=== PATIENT | female | born 2000 | race American Indian/Alaskan Native ===

== ENCOUNTER 2020-10-22 08:33 | Inpatient (IN) | payer MEDICAID ==
[2020-10-22] MEDS ORDERED: OXYTOCIN DRIP 30 UNITS/500 ML BAG IV SCH (10:00)
[2020-10-22] MEDS ORDERED: LIDOCAINE (2%) 20 MG/1 ML VIAL 20 ML MDV INFILTRATI SCH (10:00)
[2020-10-22] MEDS ORDERED: ONDANSETRON 4 MG/2 ML INJ IV PRN (10:30)
[2020-10-22] MEDS ORDERED: PROMETHAZINE 25 MG TAB PO PRN (10:30)
[2020-10-22] MEDS ORDERED: ePHEDrine SULFATE 50 MG/1 ML INJ IV PRN (10:30)
[2020-10-22] MEDS ORDERED: BUTORPHANOL 2 MG/1 ML INJ IV PRN ×2 (10:30)
[2020-10-22] MEDS ORDERED: TERBUTALINE 1 MG/1 ML INJ SUB-Q PRN (10:30)
[2020-10-22] MEDS ORDERED: NALOXONE 0.4 MG/1 ML INJ IV PRN (10:30)
[2020-10-22] MEDS ORDERED: MINERAL OIL 30 ML ORAL LIQD PO PRN (10:30)
[2020-10-22 10:40] LABS: Hematocrit 33.3 % (30.3-42.9); Hemoglobin 11.4 gm/dl (10.1-14.3); Mean Corpuscular HGB Conc 34 % (30-34); Mean Corpuscular Volume 88 fl (79-97); Platelet Count 166 K/mm3 (140-440); Red Cell Distribution Width 13.7 % (13.2-15.2)
[2020-10-22] MEDS: miSOPROStol 25 MCG TAB VG PRN ×3 (12:06→23:26)
--- NOTE | 2020-10-22 13:16 | History and Physical Report ---
History of Present Illness Date of examination: 10/22/20 Date of admission: 10/22/20 08:33 Chief complaint: Here for induction of labor History of present illness: Pt is a 20 yo at 38w1d EGA who presents for induction of labor secondary to growth restriction. She reports positive movement and denies LOF, contractions, or vaginal bleeding. She has received care with [facility], co-managed with [facility]. Her course has been complicated by growth restriction. She is GBS negative. Past History Past Medical History: asthma Past Surgical History: no surgical history Social history: no significant social history - Obstetrical History Expected Date of Delivery: 11/04/20 Actual Gestation: 38 Week(s) 1 Day(s) : 1 Para: 0 Hx # Term Pregnancies: 0 Number of Pregnancies: 0 Spontaneous Abortions: 0 Induced : 0 Number of Living Children: 0 Medications and Allergies Allergies Allergy/AdvReac Type Severity Reaction Status Date / Time No Known Allergies Allergy Unverified 10/22/20 09:54 Active Meds: Active Medications Butorphanol Tartrate (Butorphanol 2 Mg/1 Ml Inj) 1 mg IV Q2H PRN PRN Reason: Pain, Moderate(4-6) LABOR PAIN Butorphanol Tartrate (Butorphanol 2 Mg/1 Ml Inj) 2 mg IV Q2H PRN PRN Reason: Pain , Severe (7-10) Ephedrine Sulfate (Ephedrine Sulfate 50 Mg/1 Ml Inj) 10 mg IV Q2M PRN PRN Reason: Hypotension Fentanyl (Fentanyl 100 Mcg/2 Ml Inj) 100 mcg IV Q2H PRN PRN Reason: Pain,Severe (7-10) LABOR PAIN Lactated Ringer's (Lactated Ringers) 1,000 mls @ 125 mls/hr IV DIRECT BROOKE Oxytocin/Sodium Chloride (Pitocin/Ns 30 Unit/500ml) 30 units in 500 mls @ 40 mls/hr IV TITR BROOKE; Protocol Lidocaine (Lidocaine (2%) 20 Mg/1 Ml Vial 20 Ml Mdv) 20 ml INFILTRATI ONCE BROOKE Stop: 10/23/20 09:59 Mineral Oil (Mineral Oil 30 Ml Oral Liqd) 30 ml PO QHS PRN PRN Reason: Constipation Misoprostol (Misoprostol 25 Mcg Tab) 25 mcg VG Q4H PRN PRN Reason: labor Last Admin: 10/22/20 12:06 Dose: 25 mcg Documented by: Naloxone HCl (Naloxone 0.4 Mg/1 Ml Inj) 0.1 mg IV Q2MIN PRN PRN Reason: Res Rate </= 8 or 02 SAT < 92% Ondansetron HCl (Ondansetron 4 Mg/2 Ml Inj) 4 mg IV Q8H PRN PRN Reason: Nausea And Vomiting Promethazine HCl (Promethazine 25 Mg Tab) 25 mg PO Q6H PRN PRN Reason: Nausea And Vomiting Terbutaline Sulfate (Terbutaline 1 Mg/1 Ml Inj) 0.25 mg SUB-Q ONCE PRN PRN Reason: Hyperstimulation/Hypertonicity Review of Systems All systems: negative Genitourinary: vaginal bleeding (spotting after SVE), no leakage of fluid, no genital sores, no contractions - Vital Signs Vital signs: Vital Signs Pulse BP Pulse Ox 92 H 117/68 99 10/22/20 09:57 10/22/20 09:57 10/22/20 09:57 Temp Pulse Resp BP Pulse Ox 97.8 F 104 H 18 117/68 99 10/22/20 10:13 10/22/20 10:42 10/22/20 10:13 10/22/20 10:13 10/22/20 10:42 - Physical Exam Abdomen: Positive: soft Uterus: Positive: enlarged (gravid) Extremities: Positive: normal - Obstetrical FHR: category 1 Uterine Contraction Monitor Mode: External Cervical Dilatation: 3 (per RN) Cervical Effacement Percentage: 50 station: -2 Uterine Contraction Frequency (min): 5 Uterine Contraction Pattern: Regular Uterine Tone Measurement Phase: Contraction Uterine Contraction Intensity: Mild Results Result Diagrams: 10/22/20 09:31 All other labs normal. Assessment and Plan A: 20 yo at 38w1d EGA growth restriction GBS negative Asthma Membranes intact P: Admit to L&D for induction of labor Closely monitor clinical status Anticipate
[2020-10-22] MEDS: LACTATED RINGERS 1,000 ML IV SCH (21:48)
[2020-10-23] MEDS: fentaNYL 100 MCG/2 ML INJ IV PRN ×2 (00:03→08:36)
[2020-10-23] MEDS: LACTATED RINGERS 1,000 ML IV SCH ×2 (03:19→08:09)
[2020-10-23] MEDS: miSOPROStol 25 MCG TAB VG PRN (03:22)
[2020-10-23] MEDS ORDERED: OXYTOCIN DRIP 30 UNITS/500 ML BAG IV ONE (09:00)
--- NOTE | 2020-10-23 09:21 | Progress Note ---
Assessment and Plan A: 20 yo at 38w2d EGA growth restriction GBS negative Asthma P: AROM at 0810 clear fluid, FHR reassuring throughout Pitocin titration Anticipate Subjective - Subjective Date of service: 10/23/20 Principal diagnosis: IOL for FGR Interval history: HD2 of IOL for FGR. S/p Cytotec x4 doses. Patient reports: movement normal, contractions, no new complaints, no loss of fluid, no vaginal bleeding Objective - Vital Signs Vital Signs: Vital Signs - 12hr 10/23/20 10/23/20 10/23/20 03:15 04:16 08:08 Pulse Rate 81 85 85 Blood Pressure 119/67 96/60 117/70 10/23/20 10/23/20 08:15 09:17 Pulse Rate 85 85 Blood Pressure 117/68 107/61 - Exam FHR: category 1 Uterine Contraction Monitor Mode: External Cervical Dilatation: 3.5 Cervical Effacement Percentage: 50 station: -1 Uterine Contraction Pattern: Regular Uterine Tone Measurement Phase: Contraction Uterine Contraction Intensity: Strong/Firm - Labs Labs: Laboratory Results - last 24 hr 10/22/20 10/22/20 10/22/20 09:31 10:20 13:07 WBC 8.1 RBC 3.80 Hgb 11.4 Hct 33.3 MCV 88 MCH 30 MCHC 34 RDW 13.7 Plt Count 166 Syphilis IgG Antibody Nonreactive Coronavirus (PCR) Blood Type A POSITIVE Antibody Screen Negative 10/22/20 Unknown WBC RBC Hgb Hct MCV MCH MCHC RDW Plt Count Syphilis IgG Antibody Coronavirus (PCR) Negative Blood Type Antibody Screen
[2020-10-23] MEDS ORDERED: ePHEDrine SULFATE 50 MG/1 ML INJ IV PRN (09:32)
[2020-10-23] MEDS ORDERED: NALOXONE 2 MG/2 ML INJ IV PRN (09:32)
--- NOTE | 2020-10-23 09:32 | Anesthesia Consultation ---
Anesthesia Consult and Med Hx Date of service: 10/23/20 - Airway Anesthetic Teeth Evaluation: Good ROM Head & Neck: Adequate Mental/Hyoid Distance: Adequate Mallampati Class: Class II Intubation Access Assessment: Probably Good - Pulmonary Exam CTA: Yes - Cardiac Exam Cardiac Exam: RRR - Pre-Operative Health Status ASA Pre-Surgery Classification: ASA2 Proposed Anesthetic Plan: Epidural - Pulmonary Hx Asthma: Yes (childhood) Hx Respiratory Symptoms: No SOB: No COPD: No Home Oxygen Therapy: No Hx Pneumonia: No Hx Sleep Apnea: No - Cardiovascular System Hx Hypertension: No Hx Coronary Artery Disease: No Hx Heart Attack/AMI: No Hx Angina: No Hx Percutaneous Transluminal Coronary Angioplasty (PTCA): No Hx Cardia Arrhythmia: No Hx Pacemaker: No Hx Internal Defibrillator: No Hx Valvular Heart Disease: No Hx Heart Murmur: No Hx Peripheral Vascular Disease: No - Central Nervous System Hx Neuromuscular Disorder: No Hx Seizures: No CVA: No Hx Back Pain: No Hx Psychiatric Problems: No - Gastrointestinal Hx Ulcer: No Hx Gastroesophageal Reflux Disease: No - Endocrine Hx Renal Disease: No Hx End Stage Renal Disease: No Hx Cirrhosis: No Hx Liver Disease: No Hx Insulin Dependent Diabetes: No Hx Non-Insulin Dependent Diabetes: No Hx Thyroid Disease: No Hx Hypothyroidism: No Hx Hyperthyroidism: No - Hematic Hx Anemia: No Hx Sickle Cell Disease: No - Other Systems Hx Alcohol Use: No Hx Substance Use: No Hx Cancer: No Hx Obesity: Yes
[2020-10-23] MEDS ORDERED: fentaNYL-BUPIV 2 MCG/ML-0.125% 200 MCG/100 ML BAG EPIDURAL SCH (10:00)
--- NOTE | 2020-10-23 10:28 | Progress Note ---
Labor Epidural - Labor Epidural Start Time: 10:00 Stop Time: 10:06 Performed by:: LINDSAY MC Procedure: Patient is requesting a laboring epidural for laboring pain. Patient IDed, H&P reviewed, all questions and concerns were answered, and consent was signed. Timeout was performed at bedside. Patient in sitting position. Sterile prep and drape was performed. [2] ml of 1% lidocaine skin wheal at L[4]- L [5]. 18- gauge Tuohy epidural needle was advanced to loss of resistance with air technique to 6cm. Negative CSF negative blood via Tuohy needle. #27g Spinal needle clear, free flowing CSF, Pecedex 10 mcg. Epidural catheter advanced to [10] centimeters. [negative] Aspiration [negative] test dose. Sterile dressing applied. Patient tolerated procedure.
[2020-10-23] MEDS ORDERED: METHYLERGONOVINE MALEATE 0.2 MG/ML VIAL IM ONE ×2 (13:06→13:17)
--- NOTE | 2020-10-23 13:15 | Procedure Note ---
OB Delivery Note - Delivery Date of Delivery: 10/23/20 Surgeon: ROSALINDA GOMEZ (Sundar Ramirez, [facility]) Estimated blood loss: other (400cc) - Vaginal Delivery presentation: vertex Delivery position: OA Intrapartum events: PROM->1hr before delivery, mult.variable deceleratio Delivery induction: misoprostol Delivery augmentation: rupture of membranes, pitocin Delivery monitor: external FHT, external uterine Route of delivery: Delivery placenta: spontaneous Delivery cord: 3 umbilical vessels Episiotomy: none Delivery laceration: none Anesthesia: epidural - A at 1 minute: 8 at 5 minutes: 9 Infant Gender: Male
[2020-10-23] MEDS ORDERED: WITCH HAZEL/ GLYCERIN PAD TP PRN (13:16)
[2020-10-23] MEDS ORDERED: MAGNESIUM HYDROXIDE (MOM) ORAL LIQD UDC PO PRN (13:16)
[2020-10-23] MEDS ORDERED: PROMETHAZINE 25 MG TAB PO PRN (13:16)
[2020-10-23] MEDS ORDERED: ONDANSETRON 4 MG/2 ML INJ IV PRN (13:16)
[2020-10-23] MEDS ORDERED: LANOLIN/ZINC/DIMETHICONE (LANSINOH) 7 GM TP PRN (13:16)
[2020-10-23] MEDS ORDERED: PROMETHAZINE 25 MG RECT SUPP PR PRN (13:16)
[2020-10-23] MEDS ORDERED: diphenhydrAMINE 25 MG CAP PO PRN (13:16)
[2020-10-23] MEDS ORDERED: IBUPROFEN 600 MG TAB PO SCH (14:00)
--- NOTE | 2020-10-23 16:48 | Post Anesthesia Evaluation ---
- Post Anesthesia Evaluation Patient Participated: Yes Airway Patent: Yes Stable Respiratory Function: Yes Nausea/Vomiting: No Temp > 96.8F: Yes Pain Manageable: Yes Adequeate Hydration: Yes Anesthesia Complications: No Block Receding Appropriately: Yes Patient on Ventilator: No
[2020-10-24 03:36] LABS: Hematocrit 31.2 % (30.3-42.9); Hemoglobin 10.4 gm/dl (10.1-14.3)
--- NOTE | 2020-10-24 15:33 | Progress Note ---
Assessment and Plan A: PPD#1 s/p at term P: Routine care. Subjective - Subjective Date of service: 10/24/20 Principal diagnosis: IOL for IUGR Interval history: Pt feels well today. No overnight events. Patient reports: appetite normal, voiding normally, pain well controlled, ambulating normally [place]: doing well Objective - Vital Signs Latest vital signs: Vital Signs Temp Pulse Resp BP BP Pulse Ox 10/24/20 12:30 98.2 F 87 20 106/57 10/24/20 07:40 98.1 F 82 18 90/52 10/24/20 01:15 98.1 F 91 H 18 114/66 97 10/24/20 01:13 98.1 F 91 H 18 97 10/23/20 21:35 97.1 F L 90 18 115/70 99 Intake and Output 10/24/20 10/24/20 10/24/20 06:59 14:59 22:59 Intake Total 240 440 Balance 240 440 Intake: Oral 440 Intake, Free Water 240 Other: Total, Intake Amount 320 # Voids Void 2 1 - Exam Breasts: Present: deferred Abdomen: Present: soft Uterus: Present: fundal height at umbilicus Extremities: Present: normal
--- NOTE | 2020-10-24 15:38 | Discharge Summary ---
Providers - Providers Date of Admission: 10/22/20 08:33 Date of discharge: 10/24/20 Attending physician: FERNANDO IBARRA MD Primary care physician: FERNANDO IBARRA MD Hospitalization Reason for admission: induction of labor Delivery: Procedure details: Please see delivery note. Episiotomy: none Laceration: none Other procedures: none complications: none Discharge diagnosis: IUP at term delivered baby: male Hospital course: Pt was admitted for induction of labor secondary to IUGR at term. Her course was uncomplicated and she met discharge criteria on PPD#1. She will follow up in the office in 6 wks for her exam. Condition at discharge: Stable Disposition: - TO HOME OR SELFCARE - Discharge Diagnoses (1) Term of male Status: Acute (2) IUGR (intrauterine growth restriction) Status: Acute Plan - Discharge Medications Prescriptions: Ibuprofen [Motrin] 800 mg PO Q8HR PRN #30 tablet PRN Reason: Pain, Moderate (4-6) - Provider Discharge Summary Activity: routine, no sex for 6 weeks, no heavy lifting 4 weeks, no strenuous exercise Diet: routine Instructions: routine Additional instructions: [] Smoking cessation referral if applicable(refer to patient education folder for contact #) [] Refer to [facility] Booklet Call your doctor immediately for: * Fever > 100.5 * Heavy vaginal bleeding ( >1 pad per hour) * Severe persistent headache * Shortness of breath * Reddened, hot, painful area to leg or breast * Drainage or odor from incision. * Keep incision clean and dry at all times and follow doctor's instructions regarding bathing/showering - Follow up plan Follow up: FERNANDO IBARRA MD [Primary Care Provider] - 6 Weeks (Please call to schedule your son's circumcision before he is one month old. )
[2020-10-24 16:25] VITALS: BP 111/65
== END 2020-10-24 17:22 | disposition home or self-care (01) | DRG 775 ==
LOC: LD 08:33 → OB 10-23 15:37
PROVIDERS: ADMIT Obstetrics & Gynecology; ATTEND Obstetrics & Gynecology
PROC: 3E0R3BZ Introduction of Anesthetic Agent into Spinal Canal, Percutaneous Approach (ICD-10-PCS; principal; 2020-10-23)
PROC: 10E0XZZ Delivery of Products of Conception, External Approach (ICD-10-PCS; 2020-10-23)
PROC: 00HU33Z Insertion of Infusion Device into Spinal Canal, Percutaneous Approach (ICD-10-PCS; 2020-10-24)
DX: O36.5930 Maternal care for other known or suspected poor fetal growth, third trimester, not applicable or unspecified (principal); Z37.0 Single live birth; J45.909 Unspecified asthma, uncomplicated; O99.52 Diseases of the respiratory system complicating childbirth; Z20.822 Contact with and (suspected) exposure to COVID-19; Z3A.38 38 weeks gestation of pregnancy
CPT/HCPCS: 36415; 85014; 85018; 85027; 86592; 86850; 86900; 86901; G0378; J2210; J2405; J2590; J3010; J7120; U0003